=== PATIENT | male | born 1995 | race African-American/Black ===

== ENCOUNTER 2023-06-21 13:03 | Emergency (ER) | payer SELFPAY ==
[2023-06-21] VITALS (14 sets, daily range): BP systolic 174–218; BP diastolic 105–142; PULSE 91–112; RESP 14–26; O2SAT 96–100
--- NOTE | 2023-06-21 13:09 | ECG_ITS ---
Measurements Intervals [place] Rate: 97 P: 48 VT: 192 QRS: 28 QRSD: 101 T: 28 QT: 349 QTc: 445 Interpretive Statements SINUS RHYTHM NORMAL ECG NO PREVIOUS ECG AVAILABLE FOR COMPARISON Electronically Signed On 06-21-2023 14:08:57 CDT by Dustin Molina M.D.
--- NOTE | 2023-06-21 14:48 | PC.NURSE ---
Offers no c/o. Awaiting to be seen by ERP.
[2023-06-21] MEDS: lisinopriL 20 MG TABLET 40 MG PO (17:07)
[2023-06-21] MEDS: hydrALAZINE HCL 20 MG/ML VIAL 10 MG IV PUSH (17:08)
[2023-06-21] MEDS: hydroCHLOROthiazide 25 MG TABLET PO (17:08)
[2023-06-21 17:14] LABS: Basophils Percent Auto 0.6 % (0.2-1.2); Eosinophils Absolute Auto 0.1 K/mm3 (0-0.3); Eosinophils Percent Auto 1.3 % (0-4.4); Hematocrit 44.6 % (42.0-52.0); Hemoglobin 14.1 g/dL (14.0-18.0); Immature Granulocyte Absolute 0.02 K/mm3 (0.00-0.031); Immature Granulocyte Percent A 0.3 % (0-0.5); Lymphocytes Absolute Auto 2.31 K/mm3 (0.9-3.2); Lymphocytes Percent Auto 32.4 % (18.3-44.2); Mean Corpuscular HGB Conc 31.6 g/dl (32-36); Mean Corpuscular Hemoglobin 27.6 pg (26-34); Mean Corpuscular Volume 87.3 fl (80-100); Mean Platelet Volume 9.5 fl (7.4-10.4); Monocytes Absolute Auto 0.7 K/mm3 (0.1-0.6); Monocytes Percent Auto 9.1 % (2.6-8.5); Neutrophils Percent Auto 56.3 % (45.5-73.1); Platelet Count Result 321 k/mm3 (150-375); Red Blood Count 5.11 M/mm3 (4.6-6.20); Red Cell Distribution Width 13.7 % (11.5-14.5); White Blood Count 7.1 K/mm3 (4.5-10.0)
[2023-06-21 17:32] LABS: Alanine Aminotransferase 36 U/L (6-50); Albumin Level 4.5 g/dL (3.5-5.1); Alkaline Phosphatase 105 U/L (38-126); Anion Gap 6 mmol/L (8-16); Aspartate Amino Transferase 38 U/L (17-59); Bilirubin,Total 0.7 mg/dL (0.2-1.3); Blood Urea Nitrogen 12 mg/dL (9-20); Calcium 9.5 mg/dL (8.4-10.2); Carbon Dioxide 27 mmol/L (22-30); Chloride 106 mmol/L (98-107); Estimated CRCL calculation 140 ml/min; Estimated Glomerular Filt Rate > 60; Glucose 92 mg/dL (65-110); Sodium 139 mmol/L (137-145)
--- NOTE | 2023-06-21 17:57 | PC.NURSE ---
Pt declines any further BP meds. States I'm afraid to take a lot of meds because I'm allergic to Ibuprofen. I just want to go home and relax.
--- NOTE | 2023-06-21 19:34 | ED.GENADULT ---
HPI - General Adult General Chief complaint: Recheck/Abnormal Lab/Rx Stated complaint: high blood pressure Time Seen by Provider: 06/21/23 15:41 History of Present Illness HPI narrative: 28-year-old male present emergency department for evaluation me for hypertension and being noncompliant with his medications for the last few months. Patient states he has been too busy with work to visit his primary care physician. Patient denies any chest pain or shortness of breath but notes that his pressures have been running high. Related Data Home Medications Medication Instructions Recorded Confirmed lisinopril 20 tablet 06/21/23 mg-hydrochlorothiazide 12.5 mg tablet Allergies Allergy/AdvReac Type Severity Reaction Status Date / Time ibuprofen Allergy Swelling Verified 06/21/23 13:17 Review of Systems Review of Systems: All systems reviewed & are unremarkable except as noted in HPI and below Exam Narrative: APPEARANCE: Well appearing, no pain, no distress, well-nourished. HEAD: normocephalic, atraumatic. EYES: PERRLA/EOMI, conjunctivae clear. NOSE: Normal no drainage NECK: Supple. No adenopathy, no masses. RESPIRATORY: Airway patent, respirations nonlabored. Clear to auscultation bilaterally, no rales, rhonchi, wheezing. CARDIOVASCULAR: Regular rate and rhythm without murmurs rubs or gallops. ABDOMINAL: Soft, nontender, nondistended, normal bowel sounds MUSCULOSKELETAL: Moves all extremities. Strength/ROM intact, No edema, No calf tenderness. NEURO: Alert. Cranial nerves II through XII intact. Grossly intact SKIN: Warm, dry. Normal Color Course Course Emergency Course: Prior to the patient getting his blood pressure control he opted to sign out AGAINST MEDICAL ADVICE Vital Signs Vital signs: Vital Signs Pulse Rate 105 H 06/21/23 13:06 Respiratory Rate 20 06/21/23 13:06 Blood Pressure 206/119 H 06/21/23 13:06 Pulse Oximetry 100 06/21/23 13:06 Oxygen Delivery Room Air 06/21/23 13:06 Pulse Rate 110 H 06/21/23 18:03 Respiratory Rate 18 06/21/23 17:27 Blood Pressure 216/117 H 06/21/23 18:03 Pulse Oximetry 99 06/21/23 17:27 Oxygen Delivery Room Air 06/21/23 13:06 Medical Decision Making Vital Signs Vital Signs: Vital Signs Pulse Rate 105 H 06/21/23 13:06 Respiratory Rate 20 06/21/23 13:06 Blood Pressure 206/119 H 06/21/23 13:06 Pulse Oximetry 100 06/21/23 13:06 Oxygen Delivery Room Air 06/21/23 13:06 Pulse Rate 110 H 06/21/23 18:03 Respiratory Rate 18 06/21/23 17:27 Blood Pressure 216/117 H 06/21/23 18:03 Pulse Oximetry 99 06/21/23 17:27 Oxygen Delivery Room Air 06/21/23 13:06 Lab Data 06/21/23 17:09 06/21/23 17:09 Labs: Lab Results 06/21/23 Range/Units 17:09 WBC 7.1 (4.5-10.0) K/mm3 RBC 5.11 (4.6-6.20) M/mm3 Hgb 14.1 (14.0-18.0) g/dL Hct 44.6 (42.0-52.0) % MCV 87.3 (80-100) fl MCH 27.6 (26-34) pg MCHC 31.6 L (32-36) g/dl RDW 13.7 (11.5-14.5) % Plt Count 321 (150-375) k/mm3 MPV 9.5 (7.4-10.4) fl Immature Gran % (Auto) 0.3 (0-0.5) % Neut % (Auto) 56.3 (45.5-73.1) % Lymph % (Auto) 32.4 (18.3-44.2) % [place] % (Auto) 9.1 H (2.6-8.5) % Eos % (Auto) 1.3 (0-4.4) % Baso % (Auto) 0.6 (0.2-1.2) % Lymph # (Auto) 2.31 (0.9-3.2) K/mm3 [place] # (Auto) 0.7 H (0.1-0.6) K/mm3 Eos # (Auto) 0.1 (0-0.3) K/mm3 Baso # (Auto) 0.0 (0.0-0.1) K/mm3 Abs Immat Gran (auto) 0.02 (0.00-0.031) K/mm3 Absolute Neuts (auto) 4.0 (1.3-6.7) K/mm3 Absolute Nucleated RBC 0.0 (0.0-0.012) K/mm3 Nucleated RBC % 0.0 (0.0-0.2) % Sodium 139 (137-145) mmol/L Potassium 4.0 (3.4-5.0) mmol/L Chloride 106 (98-107) mmol/L Carbon Dioxide 27 (22-30) mmol/L Anion Gap 6 L (8-16) mmol/L BUN 12 (9-20) mg/dL Creatinine 1.00 (0.7-1.3) mg/dL Estim Creat Clear Calc 140 ml/min Estimated GFR > 60 (59 - ) Glucose 92 (65-110) mg/dL Calcium
== END 2023-06-21 18:05 | disposition left against medical advice (07) ==
PROVIDERS: Emergency Provider Emergency Medicine
DX: I10 Essential (primary) hypertension (principal); T46.5X6A Underdosing of other antihypertensive drugs, initial encounter
CPT/HCPCS: 36415; 80053; 85025; 93005; 96374; 99284; A9270; J0360